=== PATIENT | female | born 1985 | race Caucasian/White ===

== ENCOUNTER 2017-02-27 09:21 | Emergency (ER) | payer OTHER ==
[~2017-02-27] VITALS: Ht 167.6 cm; Wt 58.0 kg
[~2017-02-27 09:21] MED LIST: DOCU-41 PO; IBUP800T28 PO; PNV91TAB3 PO
[2017-02-27 09:26] VITALS: BP 128/71; PULSE 65; RESP 16; O2SAT 100
--- NOTE | 2017-02-27 09:47 | ED.REPORT ---
HPI-Preg Under 20 Weeks Date of Service Feb 27, 2017 ED Provider: Say Bay MD Patient is a 31 year old female who is 11 weeks who presents to the ED complaining of vaginal bleeding onset two days ago. Associated symptoms include mild pain that she reports is not as bad as a normal period. She denies fever, cough, vomiting, diarrhea or other symptoms at this time. Patient reports that today she started having heavier bleeding with clots. She states that the bleeding is heavier than a normal period. The patient reports having light bleeding after intercourse two days ago. Nursing Notes Stated Complaint: POSSIBLE MISCARRIAGE Chief Complaint: Female Abdominal Pain Nursing Notes Reviewed: Yes Allergies: Coded Allergies: erythromycin base (Unverified Allergy, Unknown, 12/01/15) Scheduled Pnv95/Ferrous Fumarate/FA ( [place]) 28 Mg Iron-800 Mcg Tablet 1 EACH PO DAILY General Time Seen by Provider: 09:54 Chief Complaint Vaginal bleeding Context: : Known 1st trim Hx Obtained From: Patient Arrived By: Walk-in Onset Occurred: 2 days ago Symptom Duration: Since onset Location: : Suprapubic Quality: Cramping, Painful Severity: Current: Mild Recent Healthcare: Recent doctor visit Similar Sx Previous: No Past Medical History Past Medical History none reported Smoking History Unknown if Ever Smoker Social History Drug Use: Denies drug use Other Social History: Good social support, , Lives with children Ambulatory Status Independent Review of Systems Constitutional: Denies: Chills, Fever Respiratory: Denies: Non-productive cough, Shortness of breath GI: Denies: Diarrhea, Vomiting Female: Reports: Pelvic pain, , Vaginal bleeding - abnl Skin: Denies Itching, Denies Rash Complete sys rev & neg: except as marked. Physical Exam Initial Vital Signs Vital Signs (First) Date Time Temp Pulse Resp B/P Pulse Ox O2 Delivery O2 Flow Rate FiO2 02/27/17 09:26 36.2 65 16 128/71 100 Initial VS: Reviewed General/Constitutional: Awake, Alert Behavior: Positive: Tearful Abdomen: Atraumatic, Soft Female Genitourinary: Exam deferred : Exam deferred (see ultrasound) Respiratory / Chest: Atraumatic, Breath sounds NL, Breath sounds = bilat, No respiratory distress Cardiovascular: Heart rate NL, Regular rhythm, Heart sounds NL Neurologic: Oriented X3, Speech NL Head / Eyes: Atraumatic, Normocephalic, PERRL, EOMI Upper Extremity / MS: Atraumatic, Full range of motion Skin: Atraumatic, Color NL, No rash, Warm, Dry Psychiatric: Affect NL, Mood NL Re-Eval/Medical Decision Re-Evaluation/Progress : Time of Eval: 10:39 Re-Evaluation/Progress Note: Discussed ultrasound results and plan for discahrge. Patient understands and agrees to plan. All questions were addressed. Counseled Regarding: Diagnosis, Lab results, Need for follow-up, When/why to return to ED Discharge & Departure Primary Impression: Incomplete Disposition: Home Discharge Condition All VS Reviewed: Yes Condition: Stable Patient Instructions: Miscarriage (ED) Additional Instructions: Your ultrasound did not show a viable embryo at this time. This does not mean that you can not get again, nor does it mean that you did something wrong to cause this miscarriage. You can take Tylenol or ibuprofen as needed for pain. Follow up with your obstetrical provider later this week or early next week Return to the emergency department if you develop any new or concerning symptoms such as brisk or very heavy bleeding, fever or fainting. Referrals: OTHER,PHYSICIAN (PCP) Scribe Attestation Portions of this note were transcribed by Hansa Sands. I, Dr. Bay personally performed the history, physical exam and medical decision-making; I reviewed and confirmed the accuracy of the information in the transcribed note. Signed by: Mavis Junior, 02/27/17 Say Bay MD Feb 27, 2017 09:47 Shante Sands Feb 27, 2017 10:00
[2017-02-27 11:07] VITALS: BP 126/62; PULSE 68; RESP 16; O2SAT 100
--- NOTE | 2017-02-27 12:04 | DRSVH ---
PROCEDURE: US PELVIC SONOGRAM INDICATIONS: 31 year-old female with heavy bleeding. TECHNIQUE: Real-time scanning was performed of the pelvic organs, with image documentation. COMPARISON: US Prabhu, US OB<14 WKS+OB TRANSVAG, 02/10/2017, 15:15. FINDINGS: Limited scanning through the kidneys shows no hydronephrosis. There is a small amount of pelvic free fluid. Uterus: Uterus measures 10.2 x 5.6 x 6.4 cm. The endometrium is thickened and heterogeneous in appe arance, measuring up to 28 mm in there is peripheral vascularity with vessels extending into the endo metrium on color Doppler interrogation. No intrauterine gestational sac identified. Ovaries: The ovaries measure 2.3 x 1.5 x 2.5 cm on the right and 2.7 x 1.3 cm on the left. No adnex al masses. IMPRESSION: 1. Findings consistent with a spontaneous in progress with no intrauterine gestational sac identified. There are heterogeneous endometrial contents consistent with blood products as well as p eripheral feeding vessels likely related to recent . 2. No adnexal masses. Dictated by: aDvid Loza M.D. on 02/27/2017 at 11:58 Approved by: David Loza M.D. on 02/27/2017 at 12:02
== END 2017-02-27 11:08 | disposition home or self-care (01) ==
LOC: SED 09:21
DX: O03.4 Incomplete spontaneous abortion without complication (principal); Z88.1 Allergy status to other antibiotic agents